=== PATIENT | female | born 1975 | race Caucasian/White ===

== ENCOUNTER 2019-04-20 16:28 | Emergency (ER) | payer MEDICAID ==
[~2019-04-20] VITALS: Ht 170.2 cm; Wt 78.7 kg
[2019-04-20 17:19] LABS: MICROSCOPIC INDICATED
[2019-04-20 17:27] LABS: CULTURE INDICATED? YES
[2019-04-20 17:29] LABS: AMPHETAMINE SCREEN, URINE Negative (Negative); BARBITURATE SCREEN, URINE Negative (Negative); BENZODIAZEPINE SCREEN, URINE Negative (Negative); CANNABINOID SCREEN, URINE Positive (Negative); COCAINE SCREEN, URINE Negative (Negative); METHADONE SCREEN, URINE Negative (Negative); OPIATE SCREEN, URINE Negative (Negative)
[2019-04-20 17:30] LABS: BASOPHILS # (AUTO) 0.02 x10^3/uL (0-0.1); BASOPHILS % (AUTO) 0 % (0-1); EOSINOPHILS # (AUTO) 0.06 x10^3/uL (0-0.4); EOSINOPHILS % (AUTO) 1 % (1-7); LYMPHOCYTES # (AUTO) 1.34 x10^3/uL (1-3.4); LYMPHOCYTES % (AUTO) 21 % (22-44); MD NO; MEAN CORPUSCULAR HEMOGLOBIN 30.5 pg (27.0-34.8); MEAN CORPUSCULAR HGB CONC 33.4 g/dL (32.4-35.8); MEAN CORPUSCULAR VOLUME 91.5 fL (80-100); MEAN PLATELET VOLUME 8.2 fL (7.4-10.4); MONOCYTES # (AUTO) 0.54 x10^3/uL (0.2-0.8); MONOCYTES % (AUTO) 8 % (2-9); NEUTROPHILS # (AUTO) 4.45 x10^3/uL (1.8-6.8); NEUTROPHILS % (AUTO) 70 % (42-75); PLATELET COUNT 235 x10^3/uL (130-400); RED CELL DISTRIBUTION WIDTH 13.2 % (9.6-15.2)
[2019-04-20 17:40] LABS: ALBUMIN 3.9 g/dL (3.4-5.0); ANION GAP 8 mmol/L (5-15); CALCIUM 8.6 mg/dL (8.5-10.1); CHLORIDE 110 mmol/L (98-107); SALICYLATE LEVEL 2.1 mg/dL (2.8-20.0)
--- NOTE | 2019-04-20 17:45 | NUR ---
EMERGENCY CONTACTS [place] [phone] MABEL PINO [phone]
--- NOTE | 2019-04-20 18:36 | NUR ---
PT PROVIDED WITH MEAL TRAY, DENIES FURTHER NEEDS AT THIS TIME. SITTER MONITORING FROM [facility]
--- NOTE | 2019-04-20 18:54 | NUR ---
RECEIVED REPORT FROM TIM YODER. PATIENT RESTING IN [facility]. SITTER AT THE DOOR.
--- NOTE | 2019-04-20 19:02 | NUR ---
TELE PSYCH TALKING TO PATIENT AT THIS TIME.
--- NOTE | 2019-04-20 19:45 | NUR ---
TELE PSYCH DONE. PATIENT WILL BE PLACED ON LEGAL HOLD.
--- NOTE | 2019-04-20 19:58 | NUR ---
PATIENT SLEEPING AT THIS TIME. RESPIRATION UNLABORED. SITTER AT THE DOOR.
[2019-04-20] MEDS ORDERED: LORA1TAB PO (20:04)
--- NOTE | 2019-04-20 20:05 | NUR ---
PATIENT TAKES BP MEDICATION BUT UNABLE TO TELL THE NAME AND SHE TOOK IT YESTERDAY NOT TODAY.
--- NOTE | 2019-04-20 20:48 | NUR ---
PT CHART FAXED TO [facility] AND [facility].
--- NOTE | 2019-04-20 22:15 | NUR ---
LINDSAY GUERIN CALLED STILL WORKING ON CALLING PATIENT'S INSURANCE. WILL CALL BACK ONCE THEY GOT IN TOUCH WITH THEM.
--- NOTE | 2019-04-21 00:25 | NUR ---
RESTING QUIETLY, NAD AT THIS TIME, SITTER OUTSIDE ROOM FOR PT SAFETY
--- NOTE | 2019-04-21 01:26 | NUR ---
RE-CHECK VITAL SIGNS. VSS. NO COMPLAINTS AT THIS TIME.
--- NOTE | 2019-04-21 03:41 | NUR ---
NO CHANGES. PATIENT SLEEPING, SITTER AT THE DOOR.
--- NOTE | 2019-04-21 04:51 | NUR ---
BREAKFAST ORDERED. PATIENT CONTINUE TO SLEEP. RESPIRATION UNLABORED. SITTER AT THE DOOR.
--- NOTE | 2019-04-21 06:51 | NUR ---
report to TIM Mora.
--- NOTE | 2019-04-21 06:59 | NUR ---
RECEIVED BEDSIDE REPORT FROM RN. JORDAN SITTER AT [facility]. ALL SAFETY MEASURES OBTAINED.
--- NOTE | 2019-04-21 08:39 | NUR ---
PT SLEEPING ONGURNEY. ALL SAFETY MEASURES OBTAINED. NO ACUTE DISTRESS NOTED. RESPS EQUAL AND UNLABORED. SITTER AT DOORWAY. WILL CONTINUE TO MONITOR.
--- NOTE | 2019-04-21 09:46 | NUR ---
pt stil sleeping on gurney. no acute distress noted. resps equal and unlabored.all safety measures obtained. sitter at doorway, pt within full view.
--- NOTE | 2019-04-21 11:42 | NUR ---
pt sleeping on gurney. NADN. RESPS EQUAL AND UNLABORED. ALL SAFETY MEASURES OBTAINED. SITTER AT DOORWAY. DIET TRAY ORDERED.
--- NOTE | 2019-04-21 11:42 | NUR ---
late entry for 1030: pt continues to sleep on [facility]. no acute distress noted. resps equal and unlabored. sitter at doorway. all safety measures obtained.
--- NOTE | 2019-04-21 11:55 | NUR ---
PT AWAKE AND AMBULATORY TO BATHROOM. PT NOW HAS HOSPITAL BED. NO ACUTE DISTRESS NOTED. ALL SAFETY MEASURES OBTAINED.
--- NOTE | 2019-04-21 13:18 | NUR ---
PT COMPLETED DIET TRAY. NO ACUTE DISTRESS NOTED. PT RESTING ON HOSP BED. ALL SAFETY MEASURES OBTAINED. SITTER AT DOORWAY, PT WITHIN FULL VIEW. NO NEEDS REQUESTED AT THIS TIME
--- NOTE | 2019-04-21 14:37 | NUR ---
PT NOW TALKING TO [facility] GENERAL OFFICE ASSISTANT. NO ACUTE DISTRESS NOTED.
[2019-04-21] MEDS ORDERED: TRAZ-137 PO (15:10)
[2019-04-21] MEDS ORDERED: MIRT30TA4 PO (15:10)
--- NOTE | 2019-04-21 16:25 | NUR ---
LATE ENTRY FOR 1530 PT RESTING ON HOSPITAL BED. NO ACUTE DISTRESS NOTED. ALL SAFETY MEASURES OBTAINED. PT CALM AND COOPERATIVE. SITTER AT DOORWAY. NO NEEDS REQUESTED AT THIS TIME.
--- NOTE | 2019-04-21 16:25 | NUR ---
PT GIVEN BOOK TO READ THAT WAS SENT DOWN FROM 3E. PT RESTING ON GURNEY. NO NEEDS REQUESTED AT THIS TIME ALL SAFETY MEASURES OBTAINED. SITTER AT DOORWAY, PT WITHIN FULL VIEW. WILL CONTINUE TO MONITOR. PT CALM, PLEASANT, AND COOPERATIVE.
--- NOTE | 2019-04-21 17:26 | NUR ---
PT FINISHED DIET TRAY. PT VERY PLEASANT, CALM AND COOPERATIVE. NO ACUTE DITRESS NOTED. ALL SAFETY MEASURES OBTAINED.
[2019-04-21] MEDS ORDERED: ARIPIPRAZOLE 10 MG TABLET ONE (18:05)
--- NOTE | 2019-04-21 18:27 | NUR ---
PT HAD SHOWER. PT HAS CLEAN LINENS AND GOWN. PT TOILETRIES IN ANTE ROOM. NO ACUTE DISTRESS NOTED. ALL SAFETY MEASURES OBTAINED.
[2019-04-21] MEDS: ARIPIPRAZOLE 10 MG TABLET PO SCH (18:29)
--- NOTE | 2019-04-21 19:12 | NUR ---
BEDSIDE REPORT TO TIM CELAYA.
--- NOTE | 2019-04-21 20:01 | NUR ---
LATE ENTRY 4-PT RESTING CALMLY READING BOOK, DENIES NEEDS AT THIS TIME, ROOM SECURED, SI PRECAUTIONS MAINTAINED, SITTER AT DOORWAY FOR CONTINOUS MONITORING.
--- NOTE | 2019-04-21 20:12 | NUR ---
PT RESTING CALMLY READING BOOK, DENIES NEEDS AT THIS TIME, NAD, SITTER AT DOORWAY FOR CONTINOUS MONITORING.
[2019-04-21] MEDS: DOXEPIN 100 MG CAPSULE PO PRN (20:51)
[2019-04-21] MEDS: PRAZOSIN 2 MG CAPSULE PO SCH (20:51)
--- NOTE | 2019-04-21 20:52 | NUR ---
PT MEDICATED PER SEP, DENIES FURHTER NEEDS AT THIS TIME, WILL CONTINUE TO MONITOR, SITTER AT DOORWAY FOR CONTINOUS MONITORING
--- NOTE | 2019-04-21 22:03 | NUR ---
PT RESTING CALMLY WITH EYES CLOSED, NADN, EQUAL CHEST RISE/FALL OBSERVED, SITTER AT DOORWAY FOR CONTINOUS MONITORING
--- NOTE | 2019-04-21 23:38 | NUR ---
PT RESTING CALMLY WITH EYES CLOSED, NAD, EQUAL CHEST RISE/FALL OBSERVED, SAFETY MEASURES MAINTAINED, SITTER AT DOORWAY FOR CONTINOUS MONITORING
--- NOTE | 2019-04-22 00:25 | NUR ---
PT RESTING CALMLY WITH EYES CLOSED, EQUAL CHEST RISE/FALL OBSERVED, SITTER AT DOORWAY FOR CONTINOUS MONITORING
--- NOTE | 2019-04-22 01:30 | NUR ---
pt requestin medication for anxiety, pt medicated with prn ativan, see mar. pt denies further needs, sitter at doorway for continous monitoring
[2019-04-22] MEDS ORDERED: LORazepam 0.5MG TABLET ONE ×3 (01:32→18:51)
[2019-04-22] MEDS: LORazepam 0.5MG TABLET PO PRN ×3 (01:34→18:52)
--- NOTE | 2019-04-22 02:30 | NUR ---
PT RESTING CALMLY WITH EYES CLOSED, NADN, EQUAL CHEST RISE/FALL OBSERVED, SITTER AT DOORWAY FOR CONTINOUS MONITORING
--- NOTE | 2019-04-22 03:20 | NUR ---
PT RESTING CALMLY WITH EYES CLOSED, NADN, EQUAL CHEST RISE/FALL OBSERVED, PT REPOSITIONED SELF IN BED, SITTER AT DOORWAY FOR CONTINOUS MONITORING
--- NOTE | 2019-04-22 04:15 | NUR ---
PT RESTING CALMLY WITH EYES CLOSED, EQUAL CHEST RISE/FALL OBSERVED, SITTER AT DOORWAY FOR CONTINOUS MONITORING
--- NOTE | 2019-04-22 05:14 | NUR ---
PT RESTING CALMLY, DENIES NEEDS AT THIS TIME, [facility] Addendum: 04/22/19 at 0515 by EMMY MORNING DIET TRAYulisa ORDERED
--- NOTE | 2019-04-22 06:16 | NUR ---
PT RESTING CALMLY WITH EYES CLOSED, NADN, EQUAL CHEST RISE/FALL OBSERVED, SITTER AT DOORWAY FOR CONTINOUS MONITORING
--- NOTE | 2019-04-22 06:58 | NUR ---
report given to kade lopez
--- NOTE | 2019-04-22 07:13 | NUR ---
patient in bed sleeping. wll awake patient further when breakfast tray comes. patient has sitter outside room. no objects of harm in room
[2019-04-22] MEDS ORDERED: ARIPIPRAZOLE 5 MG TABLET ONE (08:03)
[2019-04-22] MEDS: ARIPIPRAZOLE 10 MG TABLET PO SCH (08:05)
--- NOTE | 2019-04-22 08:12 | NUR ---
patient woke up and is cooperative. she said she didn't sleep well because it was loud in ER and she requessted ativan to help her relax. gave her prn as ordered
--- NOTE | 2019-04-22 09:51 | NUR ---
patietn resting quietly
--- NOTE | 2019-04-22 10:27 | NUR ---
THROUGHPUT: PER LAQUITA AT , INSURANCE DID NOT AUTHORIZE ADMISSION TO , PATIENT NOT ACCEPTED DUE TO INSURANCE.
--- NOTE | 2019-04-22 10:39 | NUR ---
patient got up to bathroom with sitter. she is back in bed, calm. good on feet. cooperative.
--- NOTE | 2019-04-22 10:40 | NUR ---
THROUGHPUT: PER RONALD AT [facility], NO BEDS AVAILABLE AT THIS TIME, PATIENT #2 ON THE LIST.
--- NOTE | 2019-04-22 12:46 | NUR ---
PATIENT GIVEN TRAY AND ATE ALL. COOPERATIVE.
--- NOTE | 2019-04-22 14:15 | NUR ---
TASK RN: PT RESTING IN [facility] [place] W/ EYES CLOSED. EVEN/REGULAR RESPIRATIONS NOTED. ROOM SECURE. SITTER PRESENT
--- NOTE | 2019-04-22 14:49 | NUR ---
patietn calm and resting
--- NOTE | 2019-04-22 16:21 | NUR ---
patient calm and resting quietly
--- NOTE | 2019-04-22 18:18 | NUR ---
PATIENT CALM AND RESTING
--- NOTE | 2019-04-22 18:52 | NUR ---
patient up and state feeling some anxiety. gave prn ativan as reqeusted ordered. ate all of dinner
[2019-04-22] MEDS: PRAZOSIN 2 MG CAPSULE PO SCH (21:13)
[2019-04-22] MEDS: DOXEPIN 100 MG CAPSULE PO PRN (21:13)
--- NOTE | 2019-04-23 07:04 | NUR ---
Recieved report from TIM Hankins. All questions answered. Assuming care of pt at this time. NADN. Pt resting on left lateral side on hospital bed. Sitter near doorway in direct line of sight for observation. Ordered breakfast tray.
[2019-04-23] MEDS ORDERED: ARIPIPRAZOLE 10 MG TABLET ONE (08:31)
[2019-04-23] MEDS: ARIPIPRAZOLE 10 MG TABLET PO SCH (08:38)
--- NOTE | 2019-04-23 08:42 | NUR ---
Pt alert and oriented x 4 and sits up on hospital bed. Obtained pt's vital signs. Provided pt breakfast tray. Provided medicaitons per EMAR. Pt appreciative. Pt denies HI. Pt admits to SI, pt states, "I feel pretty safe in here though." Pt states plan is, "to walk out in to the [place] and never come back." Pt room remains with SI precautions. Sitter near doorway in direct line of sight for observation. No other needs expressed at this time.
--- NOTE | 2019-04-23 10:59 | NUR ---
Pt remains resting on hospital bed reading books. No needs expressed. Lunch tray ordered. Sitter remains within direct line of sight for observation.
--- NOTE | 2019-04-23 10:59 | NUR ---
Late note entry for 929: Pt resting on hospital bed supine and reading books. NADN. No needs expressed. Sitfermin near doorway in direct line of sight for observation.
[2019-04-23] MEDS ORDERED: LORazepam 0.5MG TABLET ONE (11:56)
[2019-04-23] MEDS: LORazepam 0.5MG TABLET PO PRN (11:58)
--- NOTE | 2019-04-23 12:15 | NUR ---
RECEIVED REPORT FORM KASEY. ASSUMING CARE AT THIS TIME.
--- NOTE | 2019-04-23 13:00 | NUR ---
PT STATES PRN ATIVAN HAS BEEN EFFECTIVE. PT ATE LUNCH AND IS NOW RESTING ON HOSPITAL BED. PT IN DIRECT EYESIGHT OF SITTER.
--- NOTE | 2019-04-23 14:10 | NUR ---
PT SLEEPING ON RIGHT SIDE. NADN. PT IN DIRECT EYESIGHT OF SITTER.
[2019-04-23] MEDS ORDERED: NICOTINE 14MG/24 HR PATCH.TD24 ONE (14:28)
[2019-04-23] MEDS ORDERED: NICOTINE 14MG/24 HR PATCH.TD24 TD ONE (14:30)
--- NOTE | 2019-04-23 14:34 | NUR ---
PT REQUESTED NICOTINE PATCH, STATES SHE SMOKES 10-20 CIGARRETTES/DAY. NEW ORDER RECEIVED FROM . PATCH PLACED RIGHT SHOULDER.
--- NOTE | 2019-04-23 16:21 | NUR ---
PT RESTING ON HOSPITAL BED WATCHIN TV. PT IN DIRECT EYESIGHT OF SITTER. TIRADO
--- NOTE | 2019-04-23 17:13 | NUR ---
PT SITTING UP ON [employer] WATCHING TV. CONGN. PT IN DIRECT EYESIGHT OF SITTER. DIET TRAY ORDERED.
--- NOTE | 2019-04-23 18:47 | NUR ---
PT RESTING ON HOSPITAL BED WATCHING TV. SPRITE GIVEN TO PTRianna TIRADO.
--- NOTE | 2019-04-23 19:50 | NUR ---
Assumed care pt awake in bed. AAO x4 , cooperative with assessment maintaining good eye contact. Pt endorsed SI with plan to run into trafic . Denied jorge HI. hallucination or anxiety. Admits to feeling depressed , sad and overwhelmed. Sitter in doorway.
[2019-04-23] MEDS: PRAZOSIN 2 MG CAPSULE PO SCH (21:25)
--- NOTE | 2019-04-23 21:45 | NUR ---
Medication administered. Pt compliant. Sitting up on eating a snack at this time. Sitter in doorway.
--- NOTE | 2019-04-23 22:29 | NUR ---
TP RN: CONTACTED [facility] FOR FOLLOW UP ON ACCEPTANCE. RN STATES "I AM NOT THE NORMAL NURSE WHO WORKS ON THIS UNIT. THE ADMITTING NURSE WILL BE ON TOMORROW, SO YOU WILL HAVE TO CALL BACK THEN"
--- NOTE | 2019-04-23 23:38 | NUR ---
PT on [facility] with her eyes closed. Respiration even and unlabored. Sitter in doorway in direct line of sight for observation.
[2019-04-24] MEDS: LORazepam 0.5MG TABLET PO PRN ×2 (00:46→08:09)
[2019-04-24] MEDS ORDERED: LORazepam 0.5MG TABLET ONE ×2 (00:46→08:06)
--- NOTE | 2019-04-24 00:47 | NUR ---
Pt sitting up at bedside eating crackers/peanut butter. Reguesting Ativan. Ativan 0.5 administered as ordered and bottle of water provided.
--- NOTE | 2019-04-24 02:41 | NUR ---
Pt resting comfortably with no apparent distress noted. R even and unlabored. Sitter in doorway in direct line of sight for observation.
--- NOTE | 2019-04-24 04:17 | NUR ---
Pt resting comfortably with eyes closed. Breathing even and unlavored. Sitter in doorwat in direct line of sight for observation.
--- NOTE | 2019-04-24 05:31 | NUR ---
PT resting comfortably with even respiration. Sitter near door in direct line of sight for observation.
--- NOTE | 2019-04-24 07:05 | NUR ---
SBAR REPORT RECIEVED FROM RN CHRIS. PATIENT IS RESTING IN BED IN SUICIDE SECURED ROOM. EQUAL CHEST RISE. SITTER OUTSIDE DOOR. BREAKFAST ORDERED. PATIENT BELONGING COLLECTED AND SECURED BY PREVIOUS RN. AWAITING PLACEMENT AT [facility].
[2019-04-24] MEDS ORDERED: ARIPIPRAZOLE 10 MG TABLET ONE (08:06)
[2019-04-24] MEDS: ARIPIPRAZOLE 10 MG TABLET PO SCH (08:09)
--- NOTE | 2019-04-24 08:40 | NUR ---
PAITIENT RESTING IN HOSPITAL BED IN SUICIDE SECURED ROOM WITH SITTER AT DOORWAY. BREAKFAST TRAY IN BED. PATIENT REQUESTS SHOWER, REPORTS NO OTHER NEEDS.
--- NOTE | 2019-04-24 09:33 | NUR ---
PATIENT IS SLEEPING IN HOSPITAL BED IN SUICIDE SECURED ROOM WITH A SITTER OUTSIDE THE DOOR. GOT SUPPLIES FOR PATIENT TO SHOWER AND WILL GIVE THEM TO PATIENT UPON AWAKENING.
[2019-04-24] MEDS ORDERED: ARIPIPRAZOLE 400 MG INJ NC IM ONE (11:00)
--- NOTE | 2019-04-24 11:26 | NUR ---
PATIENT RESTING IN HOSPITAL BED IN SUICIDE SECURED ROOM WITH SITTER OUTSIDE ROOM. PATIENT IS CURRENTLY TALKING WITH HYDRO MECHANIC.
[2019-04-24] MEDS ORDERED: NICOTINE 21 MG/24 HR PATCH.TD24 ONE (12:18)
[2019-04-24] MEDS: NICOTINE 21 MG/24 HR PATCH.TD24 TD SCH (12:26)
--- NOTE | 2019-04-24 12:39 | NUR ---
PATIENT EATING LUNCH IN HOSPITAL BED IN SUICIDE SECURED ROOM WITH SITTER OUTSIDE ROOM. NICOTINE PATCH GIVEN. PATIENT REPORTS OLD ONE FELL OFF IN SHOWER. PATIENT REPORTS NOT OTHER NEEDS AT THIS TIME WCTM.
--- NOTE | 2019-04-24 13:35 | NUR ---
PATIENT RESTING IN HOSPITAL BED IN SUICIDE SECURED ROOM WITH SITTER IN DOORWAY.
--- NOTE | 2019-04-24 14:15 | NUR ---
TASK RN: FIRST CONTACT WITH PT. Pt resting on hospital bed on stomach. Pt has unlabored respirations with even chest rise and fall. No needs expressed at this time. Room remains secured for SI and HI precautions. Sitter near doorway in direct line of sight for observation.
--- NOTE | 2019-04-24 14:28 | NUR ---
PATIENT IS RESTING IN HOSPITAL BED IN SUICIDE SECURED ROOM WITH SITTERS IN THE DOORWAY.
--- NOTE | 2019-04-24 15:38 | NUR ---
PATIENT IS RESTING IN HOSPITAL BED BED IN SUCIDE SECURED ROOM WITH A SITTER IN THE DOORWAY. PATIENT IS AWAKE AND WATCHING TV. PATIENT HAS NO REQUEST AT THIS TIME.
--- NOTE | 2019-04-24 16:21 | NUR ---
PATIENT IS UP WALKING AROUND THE UNIT WITH SITTER. DINNER TRAY HAS ARRIVED.
--- NOTE | 2019-04-24 17:29 | NUR ---
PATIENT IS WATCHING TV IN HOSPITAL BED IN SUICIDE SECURED ROOM WITH A SITTER IN THE DOORWAY. PATIENT HAS NO REQUEST AT THIS TIME.
--- NOTE | 2019-04-24 18:17 | NUR ---
Preceptor RN: Pt in hospital bed in suicide secured room w/ sitter at doorway, Pt has had dinner tray, reports no needs at this time. WCTM.
--- NOTE | 2019-04-24 19:10 | NUR ---
REPORT RECEIVED FROM DIMITRI RN. CARE ASSUMED. PT ASLEEP IN ROOM, SITTER IN HALLWAY FOR DIRECT LINE OF SIGHT.
--- NOTE | 2019-04-24 20:51 | NUR ---
PT ASLEEP IN ROOM, SITTER IN HALLWAY FOR DIRECT LINE OF SIGHT.
[2019-04-24] MEDS ORDERED: PRAZOSIN 2 MG CAPSULE PO SCH (21:00)
[2019-04-24] MEDS ORDERED: DOXEPIN 100 MG CAPSULE PO SCH (21:00)
--- NOTE | 2019-04-24 21:18 | NUR ---
2100 MEDS ORDERED FROM PHARMACY, REPORT GIVEN TO TIM BURGER. CARE TRANSFERRED.
--- NOTE | 2019-04-24 21:19 | NUR ---
RECEIVED REPORT FROM TIM AGUIRRE TO ASSUME CARE. PT RESTING ON HOSPITAL BED WITH EYES CLOSED. RESPIRATIONS EVEN, NONLABORED, VISIBLE. ROOM SECURED, SITTER IN [place].
--- NOTE | 2019-04-24 22:10 | NUR ---
PT. MEDICATED PER SEP. VS UPDATED. PT. AMBULATORY TO BR WITH STEADY GAIT. SITTER REMAINS IN [place], ROOM REMAINS SECURED.
--- NOTE | 2019-04-24 23:16 | NUR ---
PT. RESTING ON HOSPITAL BED WITH EYES CLOSED; APPEARS TO BE SLEEPING WITH NO DISTRESS. EVEN CHEST RISE/FALL VISIBLE. ROOM REMAINS SECURED. SITTER REMAINS IN [place] FOR OBS.
--- NOTE | 2019-04-25 00:19 | NUR ---
PT. CONTINUES RESTING ON HOSPITAL BED WITH EYES CLOSED. NO DISTRESS NOTED. RESPIRATIONS EVEN, NON-LABORED. ROOM REMANS SECURED. SITTER IN [place].
[2019-04-25] MEDS ORDERED: LORazepam 0.5MG TABLET ONE ×2 (02:22→13:25)
[2019-04-25] MEDS: LORazepam 0.5MG TABLET PO PRN ×2 (02:33→13:27)
--- NOTE | 2019-04-25 02:35 | NUR ---
PT. RESTING ON HOSPITAL BED WITH EYES CLOSED. NO DISTRESS NOTED. RESPIRATIONS EVEN, NON-LABORED. PT MEDICATED PER SEP. ROOM REMANS SECURED. SITTER IN [place]
--- NOTE | 2019-04-25 04:14 | NUR ---
PT RESTING IN HOSPITAL BED WITH EYES CLOSED. NO DISTRESS NOTED. EVEN RESPIRATIONS NOTED. ROOM REMAINS SECURE, SITTER IN [place].
--- NOTE | 2019-04-25 05:34 | NUR ---
PT RESTING IN BED WITH EYES CLOSED. RESPIRATIONS EVEN AND UNLABORED. ALL SAFETY MEASURES IN PLACE. NEEDS MET. SITTER IN [place].
--- NOTE | 2019-04-25 06:25 | NUR ---
PT RESTING IN BED WITH EYES CLOSED. BREATHING EVEN AND UNLABORED. ROOM SECURED PER PROTOCOL, SITTER WITHIN LINE OF SIGHT IN HALLWAY.
--- NOTE | 2019-04-25 06:59 | NUR ---
REPORT FROM TIM SÁNCHEZ AND TIM BURGER. PT RESTING ON HOSPITAL BED. RESPIRATIONS EVEN AND UNLABORED. NADN. SITTER IN HALLWAY. ROOM SECURE.
--- NOTE | 2019-04-25 07:11 | NUR ---
BREAKFAST ORDERED FOR PT.
[2019-04-25] MEDS ORDERED: NICOTINE 21 MG/24 HR PATCH.TD24 ONE (07:38)
[2019-04-25] MEDS: NICOTINE 21 MG/24 HR PATCH.TD24 TD SCH (07:43)
--- NOTE | 2019-04-25 07:51 | NUR ---
PT MEDICATED PER EMAR. RESTING ON HOSPITAL BED. STATES SHE IS SUICIDAL WITH PLAN. NADN. AWARE THAT BREAKFAST IS ON THE WAY. SITTER IN HALLWAY. ROOM SECURE. PT DENIES NEEDS AT THIS TIME.
--- NOTE | 2019-04-25 08:35 | NUR ---
PT PROVIDED WITH BREAKFAST TRAY.
[2019-04-25] MEDS ORDERED: ARIPIPRAZOLE 10 MG TABLET PO SCH ×3 (09:00)
--- NOTE | 2019-04-25 09:00 | NUR ---
REPORT RECEIVED FROM TIM LOPEZ AT BEDSIDE AT THIS TIME. PT IS SLEEPING ON HOSPITAL BED, RESPS EVEN AND UNLABORED. PT HAS NOT CONSUMED ANY OF SI BREAKFAST TRAY, WHICH REMAINS AT BEDSIDE. SITTER MONITORING FROM [facility] FOR SAFETY. ROOM SECURE. CARE ASSUMED AT THIS TIME.
--- NOTE | 2019-04-25 10:11 | NUR ---
DIET TRAY CONSUMED 100%, PT NOW SLEEPING ON HOSPITAL BED, RESPS EVEN AND UNLABORED. SITTER MONITORING FROM HALLWAY FOR SAFETY. ROOM REMAINS SECURE.
--- NOTE | 2019-04-25 10:30 | NUR ---
LATE ENTRY D/T PATIENT CARE: ANDRE DOUGLAS PAGED TO CLARIFY AM ABILIFY ORDER.
--- NOTE | 2019-04-25 11:30 | NUR ---
TP RN: ZACK called, pt is 3rd on their list for acceptance.
--- NOTE | 2019-04-25 11:48 | NUR ---
BREAK RN: PT SLEEPING, EVEN & EASY CHEST RISE & FALL NOTED, HOSPITAL BED SIDE RAIL UP X2, SITTER OUTSIDE ROOM. LUNCH TRAY WAS PREVIOUSLY ORDERD.
--- NOTE | 2019-04-25 11:49 | NUR ---
pt sleeping on hospital bed, resps even and unlabored. room remains secure. sitter monitoring from hallway for safety.
--- NOTE | 2019-04-25 12:38 | NUR ---
ANDRE DOUGLAS HAS NOT RETURNED PAGE WITH (MESSAGE WITH CALL BACK NUMBER LEFT THIS AM), ANDRE DOUGLAS PAGED A SECOND TIME TO CLARIFY AM ABILIFY ORDER. SECOND MESSAGE LEFT WITH CALLBACK NUMBER.
--- NOTE | 2019-04-25 13:09 | NUR ---
ANDRE DOUGLAS PAGED THIRD TIME TO CLARIFY ABILIFY ORDER.
--- NOTE | 2019-04-25 13:09 | NUR ---
PT PROVIDED WITH SI LUNCH MEAL TRAY. PT A&O, RESPS EVEN AND UNLABORED. PT REPORTS SHE HAS CHRONIC BACK PAIN, WHICH IS AT BASELINE LEVEL AND QUALITY AT THIS TIME. VS REASSESSED. ROOM REMAINS SECURE, SITTER MONITORING FROM [facility] FOR SAFETY.
--- NOTE | 2019-04-25 13:39 | NUR ---
PT AWAKE, ALERT AND ORIENTED. COOPERATIVE, C/O ANXIETY AND REQUESTING PRN ATIVAN. PT MEDICATED PER EMAR, TOLERATED WELL. SI MEAL TRAY CONSUMED APPROX 75%. PT DENIES ANY OTHER NEEDS AT THIS TIME.
--- NOTE | 2019-04-25 14:05 | NUR ---
REPORT FROM TIM NGUYEN. PT SLEEPING IN HOSPITAL BED AT THIS TIME. ROOM SECURED. SITTER OUTSIDE ROOM.
--- NOTE | 2019-04-25 14:07 | NUR ---
REPORT GIVEN TO TIM MEYERS WHO IS ASSUMING CARE AT THIS TIME. SITTER MONITORING FROM [facility] FOR SAFETY, ROOM REMAINS SECURE.
--- NOTE | 2019-04-25 14:51 | NUR ---
ANDRE DOUGLAS PAGED 4TH TIME TO CLARIFY AM ABILIFY ORDER. MESSAGE LEFT WITH CALL BACK NUMBER. PRIMARY RN MIRA AWARE OF NEED TO CLARIFY AM ABILIFY DOSE WITH PSYC ANDRE.
--- NOTE | 2019-04-25 15:14 | NUR ---
Pt up to restroom with sitter. Steady gait noted.
--- NOTE | 2019-04-25 15:33 | NUR ---
PT GIVEN SNACK PER REQUEST.
--- NOTE | 2019-04-25 15:45 | NUR ---
ATTEMPTED TO PULL OUT MEDICATION FOR PT. PT NOT IN OMNICELL TO PULL MEDICATION. PHARMACY INFORMED.
[2019-04-25] MEDS ORDERED: LORazepam 0.5MG TABLET PO PRN (16:00)
--- NOTE | 2019-04-25 16:05 | NUR ---
MEDICATION OBTAINED FROM PHARMACY
[2019-04-25] MEDS: ARIPIPRAZOLE 10 MG TABLET PO SCH (16:15)
--- NOTE | 2019-04-25 16:30 | NUR ---
PT MEDICATED PER SEP. RIGHTS VERIFIED PRIOR. 3 P'S ADDRESSED. PT GIVEN SUCIDAL FOOD TRAY
--- NOTE | 2019-04-25 17:10 | NUR ---
PT LYING IN HOSPITAL BED WATCHING TV. NO NEEDS AT THIS TIME. ROOM SECURED. SITTER OUTSIDE ROOM.
--- NOTE | 2019-04-25 18:26 | NUR ---
SPOKE WITH NADER REGARDING SUCIDAL ASSESMENT FOR SITTER. ORDER PLACED FOR PATIENT TO BE 2:1.
--- NOTE | 2019-04-25 19:29 | NUR ---
PER JEFFY AT [facility]- THIS PATIENT IS #1 FOR TOMORROW DISCHARGES COME UP
--- NOTE | 2019-04-25 19:56 | NUR ---
Report to kade Burch.
--- NOTE | 2019-04-25 20:01 | NUR ---
REPORT RECEIVED AND CARE ASSUMED. PT FINISHED DINNER TRAY. SODA GIVEN PER REQUEST. PT REQUESTING ATIVAN BE GIVEN WITH HER NIGHT MEDS. MED ORDERS TO BE REVIEWED. NO FURTHER REQUESTS AT THIS TIME. ROOM SECURED AND SITTER IN PLACE FOR OBS.
[2019-04-25] MEDS ORDERED: DOXEPIN 100 MG CAPSULE PO SCH (21:00)
[2019-04-25] MEDS ORDERED: PRAZOSIN 2 MG CAPSULE PO SCH (21:00)
--- NOTE | 2019-04-25 21:15 | NUR ---
Pt appears to be sleeping. Resp even and unlabored. Sitter in placed for direct obs. No needs expressed.
--- NOTE | 2019-04-25 22:30 | NUR ---
pt sleeping. no needs expressed. sitter in place.
--- NOTE | 2019-04-25 23:30 | NUR ---
PT SLEEPING ON SIDE WITH RESP EVEN AND UNLABORED. SITTER IN PLACE FOR OBS. ROOM SECURED.
--- NOTE | 2019-04-26 01:19 | NUR ---
REPORT TO NAFISA DUMONT
--- NOTE | 2019-04-26 01:29 | NUR ---
IN BED. RESP ARE EVEN AND NON LABORED. SITTER AT THE DOOR.
--- NOTE | 2019-04-26 02:47 | NUR ---
IN BED. RESP ARE EVEN AND NON LABORED. SITTER AT THE DOOR.
--- NOTE | 2019-04-26 04:14 | NUR ---
IN BED. RESP ARE EVEN AND NON LABORED. SITTER AT THE DOOR.
--- NOTE | 2019-04-26 05:21 | NUR ---
IN BED. RESP ARE EVEN AND NON LABORED. SITTER AT THE DOOR.
--- NOTE | 2019-04-26 05:23 | NUR ---
REPORT FROM NAFISA,
--- NOTE | 2019-04-26 06:56 | NUR ---
REPORT RECEIVED FROM SUMAYA DUMONT.
--- NOTE | 2019-04-26 07:49 | NUR ---
TASK RN: PT RESTING IN BED. SITTER REMAINS AT BEDSIDE. ROOM REMAINS SECURE.
[2019-04-26 08:06] VITALS: BP 120/85
--- NOTE | 2019-04-26 08:08 | NUR ---
MEAL TRAY PROVIDED AT THIS TIME.
[2019-04-26] MEDS ORDERED: ARIPIPRAZOLE 10 MG TABLET ONE (08:51)
--- NOTE | 2019-04-26 08:58 | NUR ---
PT REFUSED TO TAKE MEDS AT THIS TIME. PT STATES "I'M SLEEPING AND DREAMIG. NO MEDS!".
[2019-04-26] MEDS ORDERED: ARIPIPRAZOLE 10 MG TABLET PO SCH (09:00)
[2019-04-26] MEDS ORDERED: NICOTINE 21 MG/24 HR PATCH.TD24 TD SCH (09:00)
--- NOTE | 2019-04-26 10:13 | NUR ---
pt sleeping in [facility]. resps even and unlabored. sitter monitoring from hallway for safety. room remains secure.
[2019-04-26] MEDS: ARIPIPRAZOLE 10 MG TABLET PO SCH (10:16)
--- NOTE | 2019-04-26 10:18 | NUR ---
pt medicated per emar. pt tolerated well. nicotine patch placed on right upper arm.
--- NOTE | 2019-04-26 10:51 | NUR ---
REPORT GIVEN TO JEFFY AT [facility].
--- NOTE | 2019-04-26 11:27 | NUR ---
Zohaib from [facility] accepted patient for Dr. Razo. [facility] transport set up for continuous pickling line pickler @ 1230.
--- NOTE | 2019-04-26 12:01 | NUR ---
PT RESTING IN HOSPITAL BED. RESPS EVEN AND UNLABORED. SITTER MONITORING FROM HALLWAY FOR SAFETY. ROOM REMAINS SECURE.
--- NOTE | 2019-04-26 12:42 | NUR ---
BREAK RN: [facility]. SBAR RPT TO SHOT TUBE MACHINE TENDER. PT BELONGINGS SENT WITH PT
== END 2019-04-26 12:47 ==
LOC: ED 18:17
DX: F33.9 Major depressive disorder, recurrent, unspecified (principal); F15.10 Other stimulant abuse, uncomplicated; F12.10 Cannabis abuse, uncomplicated; I10 Essential (primary) hypertension; Z87.891 Personal history of nicotine dependence
CPT/HCPCS: 36415; 80048; 80307; 81001; 82040; 84703; 85025; 87086; 96372; 99285

== ENCOUNTER 2019-06-18 18:31 | Emergency (ER) | payer MEDICAID ==
[~2019-06-18] VITALS: Ht 175.3 cm; Wt 75.0 kg
[~2019-06-18 18:31] MED LIST: LORA1TAB PO; MIRT30TA4 PO; TRAZ-137 PO
--- NOTE | 2019-06-18 18:45 | NUR ---
EVALUATING PT AND REPORT TO JODI DUMONT
[2019-06-18 18:49] VITALS: BP 160/100
[2019-06-18] MEDS ORDERED: PRAZOSIN 5 MG CAPSULE ONE (18:59)
[2019-06-18] MEDS ORDERED: QUETIAPINE 25MG TABLET ONE (18:59)
[2019-06-18] MEDS ORDERED: QUETIAPINE 25MG TABLET PO ONE (19:00)
[2019-06-18] MEDS ORDERED: ESCITALOPRAM 10MG TABLET PO ONE (19:00)
[2019-06-18] MEDS ORDERED: PRAZOSIN 2 MG CAPSULE PO ONE (19:00)
--- NOTE | 2019-06-18 19:27 | NUR ---
Medicated per emar and meal provided. Pt to go back to step 2.
--- NOTE | 2019-06-18 19:43 | NUR ---
Port accessed and dc at this time after flush protocol. Pt flushed with 10cc of sterils saline and then flushed with heaprin per onc protocol
== END 2019-06-18 19:51 | disposition home or self-care (01) ==
LOC: ED 19:49
DX: R45.851 Suicidal ideations (principal); I10 Essential (primary) hypertension; F17.200 Nicotine dependence, unspecified, uncomplicated
CPT/HCPCS: 99284

== ENCOUNTER 2019-06-22 22:02 | Emergency (ER) | payer MEDICAID ==
[~2019-06-22] VITALS: Ht 170.2 cm; Wt 82.6 kg
[2019-06-22] MEDS ORDERED: QUET100T4 PO (22:16)
[2019-06-22] MEDS ORDERED: ESCI10TA10 PO (22:17)
[2019-06-22] MEDS ORDERED: BUPIVACAINE 0.25% ONE (22:21)
[2019-06-22] MEDS ORDERED: LIDOCAINE-MPF 1%, 5ML ONE (22:23)
[2019-06-22] MEDS ORDERED: BUPIVACAINE 0.25% INFIL ONE (22:30)
[2019-06-22] MEDS ORDERED: LIDOCAINE 1%, 10ML INFIL ONE (22:30)
[2019-06-22 22:46] VITALS: BP 139/76
== END 2019-06-22 22:48 | disposition home or self-care (01) ==
LOC: ED 22:33
DX: K02.9 Dental caries, unspecified (principal); K08.89 Other specified disorders of teeth and supporting structures; F17.210 Nicotine dependence, cigarettes, uncomplicated
CPT/HCPCS: 64402; 99284; J3490

== ENCOUNTER 2019-09-02 17:40 | Emergency (ER) | payer MEDICAID ==
[~2019-09-02] VITALS: Ht 170.2 cm; Wt 90.6 kg
[~2019-09-02 17:40] MED LIST changes: +ESCI10TA10 PO; +QUET100T4 PO; -TRAZ-137 PO; +TRAZ-175 PO
[2019-09-02 17:43] VITALS: BP 149/91
[2019-09-02] MEDS ORDERED: BUPIVACAINE 0.25% ONE (17:55)
[2019-09-02] MEDS ORDERED: LIDOCAINE-MPF 1%, 5ML ONE (17:55)
[2019-09-02] MEDS ORDERED: BUPIVACAINE 0.25% INFIL ONE (18:00)
[2019-09-02] MEDS ORDERED: LIDOCAINE 1%, 10ML INFIL ONE (18:00)
--- NOTE | 2019-09-02 18:12 | NUR ---
D/C INSTRUCTIONS, MEDS & F/U APPT RV'WD WITH PT, SHE VERBALIZES UNDERSTANDING. RX GIVEN X1. DENTAL REFERRAL LIST PROVIDED. PT AMBULATED OUT OF ED WITHOUT DIFFICULTY.
== END 2019-09-02 18:15 | disposition home or self-care (01) ==
LOC: ED 18:00
DX: K02.9 Dental caries, unspecified (principal); R51 Headache; I10 Essential (primary) hypertension; F17.210 Nicotine dependence, cigarettes, uncomplicated
CPT/HCPCS: 64400; 99284; J3490

== ENCOUNTER 2019-12-24 17:44 | Emergency (ER) | payer MEDICAID ==
[~2019-12-24] VITALS: Ht 180.3 cm; Wt 85.0 kg
--- NOTE | 2019-12-24 18:01 | NUR ---
ALESSANDRA. REPORT RECEIVED FROM EMS. PT FELT AURA AT WORK. PT HASN'T HAD SZ BUT PT STATED"I FEEL I'M GOING TO HAVE IT." HX OF SZ. OFF SZ MEDS FOR 1 WEEK. PT ALSO C/O GENERALIZED WEAKNESS AND PAYNE. LAST SZ IS 6 MONTHS AGO. PT'S AOX4. RESPS EVEN AND UNLABORED. BP/SPO2 MONITORS IN PLACE. CALL LIGHT WITHIN REACH. SEIZURE PRECAUTION PLACED.
--- NOTE | 2019-12-24 18:59 | NUR ---
ASSUMED CARE OF PT AT THIS TIME.
--- NOTE | 2019-12-24 18:59 | NUR ---
PROVIDER TO BEDSIDE.
[2019-12-24] MEDS ORDERED: DIVALPROEX 500 MG TAB.ER.24H ONE (19:10)
[2019-12-24 19:14] VITALS: BP 131/75
--- NOTE | 2019-12-24 19:15 | NUR ---
PT MEDICATED PER EMAR. PT RESTING AT THIS TIME. DENIES CURRENT NEEDS.
[2019-12-24 19:28] LABS: ANION GAP 7 mmol/L (5-15); CALCIUM 8.6 mg/dL (8.5-10.1); CHLORIDE 110 mmol/L (98-107); CREATININE 0.85 mg/dL (0.55-1.02)
[2019-12-24] MEDS ORDERED: DIVALPROEX 500 MG TAB.ER.24H PO ONE (19:30)
== END 2019-12-24 20:11 | disposition home or self-care (01) ==
LOC: ED 19:45
DX: R56.9 Unspecified convulsions (principal); Z76.0 Encounter for issue of repeat prescription; Z91.14 Patient's other noncompliance with medication regimen; I10 Essential (primary) hypertension; Z72.9 Problem related to lifestyle, unspecified
CPT/HCPCS: 36415; 80048; 99283